=== PATIENT | male | born 1955 | race Caucasian/White ===

== ENCOUNTER 2016-12-20 14:11 | Inpatient (IN) | payer OTHER ==
[2016-12-20] MEDS ORDERED: OXYCODONE-ACETAMINOPHEN 5-325 MG TABLET PO ONE (15:10)
--- NOTE | 2016-12-20 15:10 | ER Document Report ---
ED Medical Screen (RME) - General Chief Complaint: Foot Pain Stated Complaint: RIGHT FOOT PAIN Time Seen by Provider: 12/20/16 15:08 Notes: 7-year-old male patient here with infected right second toe. He thinks he scraped it and/or got a blister in it several days ago. Now the foot is red and swollen as is the toe. He does not have diabetes. I have greeted and performed a rapid initial assessment of this patient. A comprehensive ED assessment and evaluation of the patient, analysis of test results and completion of the medical decision making process will be conducted by additional ED providers. TRAVEL OUTSIDE OF THE [place] IN LAST 30 DAYS: No - Related Data Allergies/Adverse Reactions: No Known Allergies Allergy (Verified 12/20/16 14:20) Past Medical History Renal/ Medical History: Denies: Hx Peritoneal Dialysis Physical Exam - Vital signs Vitals: Temp Pulse Resp BP Pulse Ox 99.8 F 106 H 16 165/94 H 97 12/20/16 14:21 12/20/16 14:21 12/20/16 14:21 12/20/16 14:21 12/20/16 14:21 Course - Vital Signs Vital signs: Temp Pulse Resp BP Pulse Ox 99.8 F 106 H 16 165/94 H 97 12/20/16 14:21 12/20/16 14:21 12/20/16 14:21 12/20/16 14:21 12/20/16 14:21
--- NOTE | 2016-12-20 15:43 | RADIOLOGY REPORT (SQ) ---
EXAM DESCRIPTION: TOE RIGHT COMPLETED DATE/TIME: 12/20/2016 3:32 pm REASON FOR STUDY: 2nd toe infection, FB/splinter? COMPARISON: None. NUMBER OF VIEWS: Three views. TECHNIQUE: AP, lateral, and oblique images acquired of the right toes. LIMITATIONS: None. FINDINGS: MINERALIZATION: Normal. BONES: No acute fracture or dislocation. No worrisome bone lesions. JOINTS: No effusions. SOFT TISSUES: There is a plantar soft tissue foreign body in the soft tissues between the bases of th e 2nd and 3rd proximal phalanges. Overlying soft tissue swelling. No soft tissue gas. OTHER: No other significant finding. IMPRESSION: Linear metallic radiopaque foreign body, in the plantar soft tissues between the 2nd and 3rd proximal phalanges No fracture. No soft tissue gas. No aggressive bony erosions. COMMENT: SITE OF TRAUMA/COMPLAINT MARKED/STAMP COMPLETED: YES. TECHNICAL DOCUMENTATION: JOB ID: [id number] [employer]- All Rights Reserved
[2016-12-20 15:52] LABS: ABSOLUTE BASOPHILS # (AUTO) 0.1 10^3/uL (0.0-0.2); ABSOLUTE EOSINOPHILS # (AUTO) 0.1 10^3/uL (0.0-0.6); ABSOLUTE LYMPHOCYTES (AUTO) 1.5 10^3/uL (0.5-4.7); ABSOLUTE MONOCYTES (AUTO) 0.9 10^3/uL (0.1-1.4); ABSOLUTE NEUT (AUTO) 8.8 10^3/uL (1.7-8.2); BASOPHILS % (AUTO) 0.5 % (0-2); EOSINOPHILS % (AUTO) 0.5 % (0-6); HEMATOCRIT 39.9 % (37.9-51.0); HEMOGLOBIN 13.3 g/dL (13.5-17.0); LYMPHOCYTES % (AUTO) 13.3 % (13-45); MEAN CORPUSCULAR HEMOGLOBIN 26.5 pg (27.0-33.4); MEAN CORPUSCULAR HGB CONC 33.3 g/dL (32.0-36.0); MEAN CORPUSCULAR VOLUME 80 fl (80-97); MONOCYTES % (AUTO) 7.7 % (3-13); RED BLOOD COUNT 5.02 10^6/uL (4.35-5.55); WHITE BLOOD COUNT 11.3 10^3/uL (4.0-10.5)
--- NOTE | 2016-12-20 16:03 | ER Document Report ---
ED Extremity Problem, Lower - General Chief Complaint: Foot Pain Stated Complaint: RIGHT FOOT PAIN Time Seen by Provider: 12/20/16 15:08 Mode of Arrival: Ambulatory Information source: Patient TRAVEL OUTSIDE OF THE [place] IN LAST 30 DAYS: No - HPI Notes: 61-year-old male presents emergency department with redness and swelling to the second digit of his right foot. He reports this began 3 days ago. [facility], and he was referred to the emergency department for further evaluation and care. He denies any known injury to the toe. He does report having a plantar wart present on the ball of his foot for the past 3 months. He suspects that it may be a foreign body and not a plantar wart. This is just proximal to the second digit. The patient also reports that his second digit is longer than the rest of his toes and sometimes gets caught on the ground when he is walking. There is a skin break on the distal portion of the second digit. The patient cannot recall when this happened. He has been cleaning it with hydrogen peroxide. The patient reports he has a history of peripheral neuropathy, likely due to chronic back problems. He denies diabetes. - Related Data Allergies/Adverse Reactions: No Known Allergies Allergy (Verified 12/20/16 14:20) Home Medications: Current Home Medications No Home Medications 12/20/16 [History] Past Medical History - Social History Smoking Status: Former Smoker Family History: Reviewed & Not Pertinent Patient has suicidal ideation: No Patient has homicidal ideation: No - Past Medical History Cardiac Medical History: Reports: Hx Hypertension Renal/ Medical History: Denies: Hx Peritoneal Dialysis Review of Systems - Review of Systems Notes: REVIEW OF SYSTEMS: CONSTITUTIONAL : Denies fever, chills, or sweats. Denies recent illness. EENT: Denies eye, ear, throat, or mouth pain or symptoms. Denies nasal or sinus congestion or discharge. CARDIOVASCULAR: Denies chest pain. Denies palpitations or racing or irregular heart beat. RESPIRATORY: Denies cough, cold, or chest congestion. Denies shortness of breath, difficulty breathing, or wheezing. GASTROINTESTINAL: Denies abdominal pain or distention. Denies nausea, vomiting , or diarrhea. GENITOURINARY: Denies difficulty urinating, painful urination, burning, frequency, blood in urine, or discharge. Muscular skeletal: Swelling of the second digit on the right foot. See HPI Skin: Erythema in the second digit of the right foot and the distal portion of the foot. See HPI LYMPHATIC: Denies swollen, enlarged glands. NEUROLOGICAL: Denies confusion or altered mental status. Denies passing out or loss of consciousness. Denies dizziness or lightheadedness. Denies headache. ALL OTHER SYSTEMS REVIEWED AND NEGATIVE. Physical Exam - Vital signs Vitals: Temp Pulse Resp BP Pulse Ox 99.8 F 106 H 16 165/94 H 97 12/20/16 14:21 12/20/16 14:21 12/20/16 14:21 12/20/16 14:21 12/20/16 14:21 - Notes Notes: PHYSICAL EXAMINATION: GENERAL: Well-appearing, well-nourished and in no acute distress. HEAD: Atraumatic, normocephalic. ENT: Nares patent, oropharynx clear without exudates. Moist mucous membranes. NECK: Normal range of motion, supple without lymphadenopathy LUNGS: Breath sounds clear to auscultation bilaterally and equal. No wheezes rales or rhonchi. HEART: Regular rate and rhythm without murmurs ABDOMEN: Soft, nontender, nondistended abdomen. No guarding, no rebound. No masses appreciated. MUSCULOSKELETAL: No noted deformity. The patient's musculoskeletal exam is within normal appearance except for the right foot. The toe is swollen and there is erythema extending proximal to approximately one third of the foot. On the plantar side, there is a thickened area with a dark core that could be a plantar wart or could be inflammation from foreign body months ago. SKIN: Notably erythemic second digit of the right foot. This toe is also noticeably swollen. The erythema extends approximately through portions of the forefoot. This area also appears to be slightly swollen. There is a small break in the skin that appears to be crusted over on the distal portion of the second toe. This area has been now cleaned off, debrided, by me. The area around the nail does not appear significantly worse than other areas. This does not appear to be an extension of paronychia. There is an old subungual hematoma present. NEUROLOGICAL: Cranial nerves grossly intact. Normal speech, normal gait. Normal sensory, motor exams PSYCH: Normal mood, normal affect. Patient is pleasant and interactive. Course - Re-evaluation Re-evalutation: 12/20/16 16:10 Worrisome evidence of infection in the second digit of the right foot. The erythema extends back to approximately one third of the forefoot. This has now been marked with a pen by me. It is unclear what the source of this infection is. It may be the skin break on the distal portion of the right second digit. It also could be triggered from a foreign body that is embedded on the plantar side, however given that this area does not have any erythema and it appears to be that the second digit is the focus of this infection, I believe this is less likely. Blood has been drawn for evaluation and an x-ray has been performed. Results are pending. I have discussed treatment with IV antibiotics now and the choice of admission to the hospital for discharge home. The patient prefers to go home. We will discuss this again after his tests have resulted. Of note, I did debride the wound on the distal portion of the second toe. There was no gross purulence noted. 12/20/16 16:38 X-ray reveals a metallic foreign body in the plantar surface of the foot. This area does not appear to be erythemic on clinical exam, but I cannot rule out this as the nidus for infection that is involving the second digit of the toe. Clindamycin IV has been ordered. Blood cultures been obtained. I have discussed the case with Dr. Rivera, general surgery, who will evaluate the patient in the emergency department as well. 12/20/16 17:29 I have seen the patient with Dr. Rivera. He is requesting a CT scan to evaluate for fluid collection. I have called and spoke with radiology to help protocol the CT. Radiology requests we do it with IV contrast. Dr. Rivera reports that he will admit the patient to the hospital. - Vital Signs Vital signs: Temp Pulse Resp BP Pulse Ox 99.8 F 106 H 18 165/94 H 97 12/20/16 14:21 12/20/16 14:21 12/20/16 15:59 12/20/16 14:21 12/20/16 14:21 - Laboratory Result Diagrams: 12/20/16 15:30 12/20/16 15:30 Laboratory results interpreted by me: 12/20/16 12/20/16 15:30 15:30 WBC 11.3 H Hgb 13.3 L MCH 26.5 L Absolute Neutrophils 8.8 H Sodium 136.9 L Glucose 156 H Discharge - Discharge Clinical Impression: Abscess or cellulitis of foot Condition: Fair Disposition: ADMITTED OBSERVATION Admitting Provider: Surgicalist Unit Admitted: Surgical Floor
[2016-12-20 16:05] LABS: ALANINE AMINOTRANSFERASE 44 U/L (21-72); ALBUMIN 4.5 g/dL (3.5-5.0); ALKALINE PHOSPHATASE 75 U/L (38-126); ANION GAP 12 (5-19); ASPARTATE AMINO TRANSFERASE 30 U/L (17-59); BILIRUBIN,DIRECT 0.4 mg/dL (0.0-0.4); BILIRUBIN,TOTAL 0.9 mg/dL (0.2-1.3); BLOOD UREA NITROGEN 13 mg/dL (7-20); CALCIUM 9.7 mg/dL (8.4-10.2); CARBON DIOXIDE 24 mmol/L (22-30); CHLORIDE 101 mmol/L (98-107); CREATININE RESULT 1.15 mg/dL (0.52-1.25); GLUCOSE 156 mg/dL (75-110); POTASSIUM 4.5 mmol/L (3.6-5.0); SODIUM 136.9 mmol/L (137-145); TOTAL PROTEIN 7.8 g/dL (6.3-8.2)
[2016-12-20] MEDS ORDERED: CLINDAMYCIN 600 MG/D5W RTU 600 MG/50 ML RTUPB IV ONE (16:15)
[2016-12-20] MEDS ORDERED: NORMAL SALINE 1000 ML 500 ML IV ONE (16:40)
[2016-12-20] MEDS ORDERED: PIPERACILLIN/TAZOBACTAM 3.375 GM VIAL IV ONE (18:03)
--- NOTE | 2016-12-20 18:04 | PDOC H&P ---
History of Present Illness Patient complains of: right forefoot redness and swelling History of Present Illness: JACKIE PATIÑO is a 61 year old patient with a hx of with infected right second toe and right forefoot for about 3 days. He thinks that his second toe curls and he walks on it so to cause a blister and then an opening of the dorsal skin of the middle second toe joint. According to the patient, he scraped it and/or got a blister. Eventually, this has evolved into redness, swelling, and drainage followed by signs of cellulitis affecting the dorsal right forefoot. He states he does not have diabetes. Past Medical History Cardiac Medical History: Reports: Hypertension Past Surgical History Past Surgical History: Reports: Appendectomy, Orthopedic Surgery - left knee, 2nd toe has pin in place Social History Lives with: Spouse/Significant other Smoking Status: Former Smoker - quit 5 years ago Frequency of Alcohol Use: Heavy - patient not specific Hx Recreational Drug Use: No Drugs: None Family History Family History: Reviewed & Not Pertinent Parental Family History Reviewed: No - none Children Family History Reviewed: No - none Sibling(s) Family History Reviewed.: No Medication/Allergy Home Medications: No Home Medications 12/20/16 Allergies/Adverse Reactions: No Known Allergies Allergy (Verified 12/20/16 14:20) Physical Exam Vital Signs: Temp Pulse Resp BP Pulse Ox 99.8 F 106 H 18 165/94 H 97 12/20/16 14:21 12/20/16 14:21 12/20/16 15:59 12/20/16 14:21 12/20/16 14:21 Intake & Output 12/19/16 12/20/16 12/21/16 06:59 06:59 06:59 Weight 127.2 kg Respiratory exam: PRESENT: clear to auscultation nathaniel Cardiovascular exam: PRESENT: RRR Pulses: PRESENT: normal femoral pulses, +2 pedal pulses bilateral Vascular exam: PRESENT: normal capillary refill GI/Abdominal exam: PRESENT: normal bowel sounds, soft Extremities exam: PRESENT: +1 edema - right dorsal forefoot edema with redness, some redness extending to the dorsal right leg Skin exam: PRESENT: other - right forefoot redness and edema; ulcer of the dorsal aspect, middle joint, second toe Results Laboratory Results: 12/20/16 15:30 12/20/16 15:30 12/20/16 12/20/16 15:30 15:30 WBC 11.3 H RBC 5.02 Hgb 13.3 L Hct 39.9 MCV 80 MCH 26.5 L MCHC 33.3 RDW 14.0 Plt Count 209 Seg Neutrophils % 78.0 Lymphocytes % 13.3 Monocytes % 7.7 Eosinophils % 0.5 Basophils % 0.5 Absolute Neutrophils 8.8 H Absolute Lymphocytes 1.5 Absolute Monocytes 0.9 Absolute Eosinophils 0.1 Absolute Basophils 0.1 Sodium 136.9 L Potassium 4.5 Chloride 101 Carbon Dioxide 24 Anion Gap 12 BUN 13 Creatinine 1.15 Est GFR ( Amer) > 60 Est GFR (Non-Af Amer) > 60 Glucose 156 H Calcium 9.7 Total Bilirubin 0.9 AST 30 ALT 44 Alkaline Phosphatase 75 Total Protein 7.8 Albumin 4.5 Impressions: Toe X-Ray 12/20/16 15:08 IMPRESSION: Linear metallic radiopaque foreign body, in the plantar soft tissues between the 2nd and 3rd proximal phalanges No fracture. No soft tissue gas. No aggressive bony erosions. Assessment & Plan - Plan Summary Plan Summary: A/ right second toe and right forefoot cellulitis, most likely secondary to trauma of the second toe presence of foreign body, right forefoot plantar surface: area not involved by cellulitis, therefore incidental findings mild leucocytosis P/ Obtain stat CT scan right foot to r/o fluid collection and gas gangrene requiring surgical debridment Admit IV antibiotics (Clinda/Zosyn) IVF
--- NOTE | 2016-12-20 18:16 | RADIOLOGY REPORT (SQ) ---
EXAM DESCRIPTION: CT RT LOWER EXTREMITY WITH COMPLETED DATE/TIME: 12/20/2016 6:02 pm REASON FOR STUDY: Cellulitis of foot. Evaluate for abscess. COMPARISON: None. TECHNIQUE: CT scan of the right foot was performed with IV contrast. Images reviewed with soft tiss ue and bone windows. Reconstructed coronal and sagittal MPR images reviewed. All images stored on [employer]. Patient was injected with 100 mL of Isovue 370. Creatinine 1.[address] scanners at this facility use dose modulation, iterative reconstruction, and/or weight based d osing when appropriate to reduce radiation dose to as low as reasonably achievable (ALARA). [facility]: Dose Right [facility]: CareDose [facility]: Dose Right [facility]: Teradose 4D [facility]: [employer] RADIATION DOSE: Up-to-date CT equipment and radiation dose reduction techniques were employed. CTDIv ol: 4.1 mGy. DLP: 119 mGy-cm. mGy. LIMITATIONS: None. FINDINGS: Diffuse skin thickening and subcutaneous stranding is seen over the 2nd toe. No soft tiss ue fluid collection worrisome for abscess. There is diffuse cellulitis with skin thickening and subcutaneous stranding over the plantar aspect o f the right foot at the 2nd and 3rd metatarsophalangeal joint region, extending into the lateral foot soft tissues. Mild diffuse subcutaneous edema in the dorsal foot soft tissues. A linear are radiopaque foreign body is present in the soft tissues, plantar right foot at the level of the 2nd metatarsophalangeal joint. This measures about 5 mm x 1 mm in size, best shown on sagitta l reconstruction images 36 and 37. Surrounding fibrosis in the plantar fat is identified. Normal vascular enhancement. No fracture. No lytic or blastic bony changes. Mild bony spurring at the ankle joint, talonavicular joint, calcaneocuboid joint, subtalar joints, with small plantar and dorsal calcaneal spurs IMPRESSION: 2nd toe cellulitis No CT evidence of foot abscess Radiopaque foreign body in the plantar soft tissues at the level of the 2nd metatarsal head TECHNICAL DOCUMENTATION: JOB ID: [id number] Quality ID # [id number]: Final reports with documentation of one or more dose reduction techniques (e.g., Au tomated exposure control, adjustment of the mA and/or kV according to patient size, use of iterative reconstruction technique) 2010 [employer]- All Rights Reserved
[2016-12-20] MEDS ORDERED: NORMAL SALINE 1000 ML 1,000 ML IV PRN (18:40)
[2016-12-20] MEDS ORDERED: ACETAMINOPHEN 325 MG TABLET PO PRN (18:40)
[2016-12-20] MEDS ORDERED: MORPHINE SULFATE 10 MG/ML INJ IV PRN (18:40)
[2016-12-20] MEDS ORDERED: ENOXAPARIN SODIUM INJ 40 MG/0.4 ML DISP.SYRIN SUBCUT ONE (20:00)
[2016-12-20] MEDS ORDERED: PIPERACILLIN SODIUM/TAZOBACTAM 3.375 GM in NORMAL SALINE 100 ML IV ONE (20:00)
[2016-12-20] MEDS: FAMOTIDINE INJ/PF 20 MG/2 ML SDV IV SCH (22:38)
[2016-12-20] MEDS: PIPERACILLIN SODIUM/TAZOBACTAM 3.375 GM in NORMAL SALINE 100 ML IV SCH (22:47)
[2016-12-20] MEDS: CLINDAMYCIN 600 MG/D5W RTU 600 MG/50 ML RTUPB IV SCH (23:25)
[2016-12-21] MEDS ORDERED: PIPERACILLIN/TAZOBACTAM 3.375 GM VIAL IV SCH
[2016-12-21] MEDS: CLINDAMYCIN 600 MG/D5W RTU 600 MG/50 ML RTUPB IV SCH ×3 (05:07→22:16)
[2016-12-21 05:12] LABS: ABSOLUTE BASOPHILS # (AUTO) 0.1 10^3/uL (0.0-0.2); ABSOLUTE EOSINOPHILS # (AUTO) 0.3 10^3/uL (0.0-0.6); ABSOLUTE LYMPHOCYTES (AUTO) 1.4 10^3/uL (0.5-4.7); ABSOLUTE MONOCYTES (AUTO) 0.6 10^3/uL (0.1-1.4); ABSOLUTE NEUT (AUTO) 3.6 10^3/uL (1.7-8.2); EOSINOPHILS % (AUTO) 4.3 % (0-6); HEMOGLOBIN 11.8 g/dL (13.5-17.0); HGB HCT DIFFERENCE 0.4; LYMPHOCYTES % (AUTO) 23.9 % (13-45); MEAN CORPUSCULAR HEMOGLOBIN 26.8 pg (27.0-33.4); MEAN CORPUSCULAR HGB CONC 33.7 g/dL (32.0-36.0); MEAN CORPUSCULAR VOLUME 79 fl (80-97); RED CELL DISTRIBUTION WIDTH 13.9 % (11.5-14.0); SEGMENTED NEUTROPHILS % (AUTO) 60.8 % (42-78); WHITE BLOOD COUNT 5.9 10^3/uL (4.0-10.5)
[2016-12-21 05:24] LABS: ANION GAP 6 (5-19); BLOOD UREA NITROGEN 14 mg/dL (7-20); CALCIUM 8.6 mg/dL (8.4-10.2); CARBON DIOXIDE 27 mmol/L (22-30); CHLORIDE 104 mmol/L (98-107); GLUCOSE 157 mg/dL (75-110); POTASSIUM 4.3 mmol/L (3.6-5.0)
[2016-12-21] MEDS: PIPERACILLIN SODIUM/TAZOBACTAM 3.375 GM in NORMAL SALINE 100 ML IV SCH ×4 (05:59→23:15)
[2016-12-21] MEDS: FAMOTIDINE INJ/PF 20 MG/2 ML SDV IV SCH ×2 (11:16→22:16)
[2016-12-21] MEDS: ENOXAPARIN SODIUM INJ 40 MG/0.4 ML DISP.SYRIN SUBCUT SCH (11:18)
[2016-12-21] MEDS: DOCUSATE SODIUM 100 MG CAPSULE PO SCH (11:19)
[2016-12-21] MEDS: BACITRACIN ZINC OINTMENT 15 GM TP SCH ×3 (11:22→18:39)
[2016-12-21] MEDS ORDERED: NAPROXEN 250 MG TABLET PO PRN (13:42)
[2016-12-21] MEDS ORDERED: ACETAMINOPHEN 325 MG TABLET PO PRN (13:46)
--- NOTE | 2016-12-21 13:53 | PDOC PROGRESS REPORT ---
Subjective Progress Note for:: 12/21/16 Subjective:: patient feels comfortable, denies right foot pain Physical Exam Vital Signs: Temp Pulse Resp BP Pulse Ox 97.7 F 75 12 139/98 H 100 12/21/16 10:57 12/21/16 10:57 12/21/16 10:57 12/21/16 10:57 12/21/16 10:57 Intake & Output 12/20/16 12/21/16 12/22/16 06:59 06:59 06:59 Intake Total 480 Balance 480 Weight 126.55 kg Extremities exam: PRESENT: other - Right foot: stille edema present, decraed erythema, minimal tenderness Results Laboratory Results: 12/21/16 04:57 12/21/16 04:57 12/21/16 12/21/16 04:57 04:57 WBC 5.9 RBC 4.40 Hgb 11.8 L Hct 35.0 L MCV 79 L MCH 26.8 L MCHC 33.7 RDW 13.9 Plt Count 167 Seg Neutrophils % 60.8 Lymphocytes % 23.9 Monocytes % 10.0 Eosinophils % 4.3 Basophils % 1.0 Absolute Neutrophils 3.6 Absolute Lymphocytes 1.4 Absolute Monocytes 0.6 Absolute Eosinophils 0.3 Absolute Basophils 0.1 Sodium 137.0 Potassium 4.3 Chloride 104 Carbon Dioxide 27 Anion Gap 6 BUN 14 Creatinine 1.10 Est GFR ( Amer) > 60 Est GFR (Non-Af Amer) > 60 Glucose 157 H Calcium 8.6 Impressions: Toe X-Ray 12/20/16 15:08 IMPRESSION: Linear metallic radiopaque foreign body, in the plantar soft tissues between the 2nd and 3rd proximal phalanges No fracture. No soft tissue gas. No aggressive bony erosions. Lower Extremity CT 12/20/16 17:27 IMPRESSION: 2nd toe cellulitis No CT evidence of foot abscess Radiopaque foreign body in the plantar soft tissues at the level of the 2nd metatarsal head Assessment & Plan - Plan Summary Plan Summary: A/ right forefoot cellulitis Physicalk exam improved with less edema and erythema still diffusely swollen RLE foot to thigh P/ Continue bedrest and RLE elevation Continue IV antibiotics (Clinda/Zosyn) Heplock IVF Stop narcotics Start Tylenol/Advil for pain control
--- NOTE | 2016-12-21 15:02 | RADIOLOGY REPORT (SQ) ---
EXAM DESCRIPTION: VENOUS UNILATERAL LOWER COMPLETED DATE/TIME: 12/21/2016 2:55 pm REASON FOR STUDY: right lower extermity venous duplex to r/o DVT COMPARISON: None. TECHNIQUE: Dynamic and static latham scale and color images acquired of the right leg venous system. S elected spectral images acquired with additional compression and augmentation maneuvers. The contrala teral common femoral vein and saphenofemoral junction were also imaged. Images stored on PACS. LIMITATIONS: None. FINDINGS: COMMON FEMORAL: Normal phasicity, compression and augmentation. No visualized echogenic ma terial on latham scale. No defects on color images. FEMORAL: Normal compression and augmentation. No visualized echogenic material on latham scale. No defe cts on color images. POPLITEAL: Normal compression, augmentation. No visualized echogenic material on latham scale. No defec ts on color images. CALF VESSELS: Normal compression, augmentation. No visualized echogenic material on latham scale. No de fects on color images. GSV and SSV: Normal compression, augmentation. No visualized echogenic material on latham scale. No def ects on color images. ANY DEEP VENOUS INSUFFICIENCY: Not evaluated. ANY EVIDENCE OF POPLITEAL CYST: No. OTHER: No other significant finding. CONTRALATERAL COMMON FEMORAL VEIN AND SAPHENOFEMORAL JUNCTION: Normal phasicity, compression and augmentation. No visualized echogenic material on latham scale. No de fects on color images. IMPRESSION: NO EVIDENCE DVT OR SVT IN THE RIGHT LEG. TECHNICAL DOCUMENTATION: JOB ID: [id number] [employer]- All Rights Reserved
[2016-12-22 04:34] LABS: ABSOLUTE BASOPHILS # (AUTO) 0.1 10^3/uL (0.0-0.2); ABSOLUTE EOSINOPHILS # (AUTO) 0.2 10^3/uL (0.0-0.6); ABSOLUTE LYMPHOCYTES (AUTO) 1.2 10^3/uL (0.5-4.7); ABSOLUTE MONOCYTES (AUTO) 0.4 10^3/uL (0.1-1.4); EOSINOPHILS % (AUTO) 4.9 % (0-6); HEMOGLOBIN 11.8 g/dL (13.5-17.0); HGB HCT DIFFERENCE 0.4; LYMPHOCYTES % (AUTO) 24.4 % (13-45); MEAN CORPUSCULAR HEMOGLOBIN 26.8 pg (27.0-33.4); MEAN CORPUSCULAR HGB CONC 33.7 g/dL (32.0-36.0); MEAN CORPUSCULAR VOLUME 80 fl (80-97); MONOCYTES % (AUTO) 8.6 % (3-13); RED CELL DISTRIBUTION WIDTH 13.7 % (11.5-14.0); SEGMENTED NEUTROPHILS % (AUTO) 61.1 % (42-78); WHITE BLOOD COUNT 4.9 10^3/uL (4.0-10.5)
[2016-12-22 04:49] LABS: ANION GAP 7 (5-19); BLOOD UREA NITROGEN 13 mg/dL (7-20); CALCIUM 9.2 mg/dL (8.4-10.2); CARBON DIOXIDE 25 mmol/L (22-30); CHLORIDE 105 mmol/L (98-107); CREATININE RESULT 1.07 mg/dL (0.52-1.25); GLUCOSE 149 mg/dL (75-110); POTASSIUM 4.5 mmol/L (3.6-5.0); SODIUM 137.1 mmol/L (137-145)
[2016-12-22] MEDS: PIPERACILLIN SODIUM/TAZOBACTAM 3.375 GM in NORMAL SALINE 100 ML IV SCH ×4 (05:51→23:26)
[2016-12-22] MEDS: CLINDAMYCIN 600 MG/D5W RTU 600 MG/50 ML RTUPB IV SCH (05:52)
[2016-12-22] MEDS: BACITRACIN ZINC OINTMENT 15 GM TP SCH (11:08)
[2016-12-22] MEDS: ENOXAPARIN SODIUM INJ 40 MG/0.4 ML DISP.SYRIN SUBCUT SCH (11:08)
[2016-12-22] MEDS: DOCUSATE SODIUM 100 MG CAPSULE PO SCH (11:09)
--- NOTE | 2016-12-22 16:28 | PDOC PROGRESS REPORT ---
Subjective Progress Note for:: 12/22/16 Subjective:: patient is comfortable, denies right foot pain Physical Exam Vital Signs: Temp Pulse Resp BP Pulse Ox 97.7 F 73 12 144/80 H 99 12/22/16 11:13 12/22/16 11:13 12/22/16 11:13 12/22/16 11:13 12/22/16 11:13 Intake & Output 12/21/16 12/22/16 12/23/16 06:59 06:59 06:59 Intake Total 480 720 200 Output Total 650 Balance 480 70 200 Weight 126.55 kg 133 kg Extremities exam: PRESENT: +1 edema, other - right forefoot: minimal edema, no erythema, good ROM, mild edema second toe with small skin ulceration of the middle phalangeal joint Results Laboratory Results: 12/22/16 04:16 12/22/16 04:16 12/22/16 12/22/16 04:16 04:16 WBC 4.9 RBC 4.40 Hgb 11.8 L Hct 35.0 L MCV 80 MCH 26.8 L MCHC 33.7 RDW 13.7 Plt Count 182 Seg Neutrophils % 61.1 Lymphocytes % 24.4 Monocytes % 8.6 Eosinophils % 4.9 Basophils % 1.0 Absolute Neutrophils 3.0 Absolute Lymphocytes 1.2 Absolute Monocytes 0.4 Absolute Eosinophils 0.2 Absolute Basophils 0.1 Sodium 137.1 Potassium 4.5 Chloride 105 Carbon Dioxide 25 Anion Gap 7 BUN 13 Creatinine 1.07 Est GFR ( Amer) > 60 Est GFR (Non-Af Amer) > 60 Glucose 149 H Calcium 9.2 Impressions: Toe X-Ray 12/20/16 15:08 IMPRESSION: Linear metallic radiopaque foreign body, in the plantar soft tissues between the 2nd and 3rd proximal phalanges No fracture. No soft tissue gas. No aggressive bony erosions. Lower Extremity CT 12/20/16 17:27 IMPRESSION: 2nd toe cellulitis No CT evidence of foot abscess Radiopaque foreign body in the plantar soft tissues at the level of the 2nd metatarsal head Venous Doppler Study 12/21/16 00:00 IMPRESSION: NO EVIDENCE DVT OR SVT IN THE RIGHT LEG. Assessment & Plan - Plan Summary Plan Summary: A/ right forefoot cellulitis Physical exam improved with almost completely resolved edema and no erythema Decreased swelling of RLE RLE venous duplex negative for DVT done yesterday P/ Continue bedrest and RLE elevation Discontinue Clindamycin Continue IV Zosyn) Discharge tomorrow after an additional 24 hrs of IV antibiotics
[2016-12-22] MEDS ORDERED: BACITRACIN ZINC OINTMENT 15 GM TP ONE (16:45)
[2016-12-22] MEDS: FAMOTIDINE 20 MG TABLET PO SCH (21:09)
[2016-12-23] MEDS: PIPERACILLIN SODIUM/TAZOBACTAM 3.375 GM in NORMAL SALINE 100 ML IV SCH ×3 (05:38→19:23)
[2016-12-23 06:45] LABS: ABSOLUTE BASOPHILS # (AUTO) 0.1 10^3/uL (0.0-0.2); ABSOLUTE EOSINOPHILS # (AUTO) 0.2 10^3/uL (0.0-0.6); ABSOLUTE LYMPHOCYTES (AUTO) 1.4 10^3/uL (0.5-4.7); ABSOLUTE MONOCYTES (AUTO) 0.4 10^3/uL (0.1-1.4); ABSOLUTE NEUT (AUTO) 3.8 10^3/uL (1.7-8.2); BASOPHILS % (AUTO) 0.9 % (0-2); EOSINOPHILS % (AUTO) 3.6 % (0-6); HEMATOCRIT 37.1 % (37.9-51.0); HEMOGLOBIN 12.5 g/dL (13.5-17.0); HGB HCT DIFFERENCE 0.4; MEAN CORPUSCULAR HEMOGLOBIN 26.8 pg (27.0-33.4); MEAN CORPUSCULAR HGB CONC 33.7 g/dL (32.0-36.0); MEAN CORPUSCULAR VOLUME 80 fl (80-97); MONOCYTES % (AUTO) 7.5 % (3-13); RED BLOOD COUNT 4.66 10^6/uL (4.35-5.55); RED CELL DISTRIBUTION WIDTH 13.5 % (11.5-14.0); WHITE BLOOD COUNT 5.9 10^3/uL (4.0-10.5)
[2016-12-23 07:04] LABS: ANION GAP 6 (5-19); BLOOD UREA NITROGEN 16 mg/dL (7-20); CALCIUM 9.4 mg/dL (8.4-10.2); CARBON DIOXIDE 28 mmol/L (22-30); CHLORIDE 103 mmol/L (98-107); CREATININE RESULT 1.19 mg/dL (0.52-1.25); GLUCOSE 151 mg/dL (75-110); POTASSIUM 4.4 mmol/L (3.6-5.0); SODIUM 136.9 mmol/L (137-145)
[2016-12-23] MEDS: DOCUSATE SODIUM 100 MG CAPSULE PO SCH (11:12)
[2016-12-23] MEDS: BACITRACIN ZINC OINTMENT 15 GM TP SCH ×2 (11:12→19:23)
[2016-12-23] MEDS: FAMOTIDINE 20 MG TABLET PO SCH (11:12)
[2016-12-23] MEDS: ENOXAPARIN SODIUM INJ 40 MG/0.4 ML DISP.SYRIN SUBCUT SCH (11:13)
[2016-12-23 21:07] VITALS: BP 138/90
--- NOTE | 2016-12-23 21:37 | DISCHARGE SUMMARY E ---
Discharge Summary NAME: JACKIE PATIÑO : 1955 AGE: 61Y ADMITTED: 12/20/2016 DISCHARGED: REASON FOR ADMISSION: Right foot infection. SUMMARY OF HOSPITALIZATION: The patient is a 61-year-old white male with a history of alcohol consumption who presents to the emergency department complaining of a right second toe infection for about 3 days. He was admitted to the surgical service for intravenous antibiotics. The patient was evaluated by imaging including x-rays and CT scan, which showed a fine wire-like foreign body in his right foot over the metatarsal region second digit; there was no evidence of air or fluid on the CT scan. The patient's clinical condition improved with intravenous antibiotics. By the third hospital day, he was ready for discharge home. Of note, he did have a venous duplex study of his right lower extremity, which showed no evidence of DVT. FINAL DIAGNOSIS: Right foot cellulitis with advanced infection right second toe, status post intravenous antibiotics, left elevation and local wound care. DISPOSITION: The patient will be discharged home in care of his family. Followup with [facility] approximately 1 week, take Augmentin 500 mg p.o. t.i.d. and keep the leg elevated. He will apply dressings to the right second toe, which has a very small ulcer over the distal phalangeal joint. DICTATING PHYSICIAN: MICHI NELSON M.D. [id number] SUKHY#: [id number] ID: [id number] JOB#: [id number] ACCT: [id number] cc:Kendrick RUIZ M.D. >
== END 2016-12-23 21:30 | disposition home or self-care (01) | DRG 603 ==
LOC: ER 14:11 → UNDOADMOB 18:29 → EH 18:29 → OBSVTOIN 18:37 → EH 18:37 → 4N 20:55
PROVIDERS: ATTEND Surgery
PROC: 0HDMXZZ Extraction of Right Foot Skin, External Approach (ICD-10-PCS; principal; 2016-12-20)
DX: L03.115 Cellulitis of right lower limb (principal); L03.031 Cellulitis of right toe; S91.341A Puncture wound with foreign body, right foot, initial encounter; X58.XXXA Exposure to other specified factors, initial encounter; Y93.9 Activity, unspecified; Y92.9 Unspecified place or not applicable; Y99.9 Unspecified external cause status; I10 Essential (primary) hypertension; Z87.891 Personal history of nicotine dependence
CPT/HCPCS: 36415; 80048; 80053; 85025; 87040; 93971; J1650; J2543; J3490; J7030; S0028

== ENCOUNTER 2019-04-16 07:01 | Day surgery (SDC) | payer OTHER ==
[~2019-04-16 07:01] MED LIST: BUPIVACAINE HCL 0.75% INJ/PF (7.5 MG/1 ML) 10 ML SDV OS PRN; FENTANYL CITRATE INJ/PF 100 MCG/2 ML AMPUL ONE; KETOROLAC TROMETHAMINE 0.45% 4 DROP/0.4 ML DROPERETTE OS PRN; LIDOCAINE 4% INJ/PF (40 MG/ML) 5 ML AMPUL OS PRN; MIDAZOLAM 2 MG/2 ML INJ ONE; ONDANSETRON HCL INJ/PF 4 MG/2 ML SDV ONE
[2019-04-16] MEDS: TROPICAMIDE 1% OPH SOLN 15 ML OS PRN ×3 (08:21→08:39)
[2019-04-16] MEDS: TETRACAINE HCL 0.5% OPH SOLN 4 ML OS PRN ×3 (08:21→08:47)
[2019-04-16] MEDS: BESIFLOXACIN HCL 0.6% OPH SUSP 5 ML BOTTLE OS PRN ×4 (08:22→09:13)
[2019-04-16] MEDS: CYCLOPENTOLATE 0.2%/PHENYLEPHRINE 1% OPH SOLN 2 ML OS PRN ×3 (08:22→08:39)
[2019-04-16] MEDS: EPINEPHRINE INJ/PF 1 MG/1 ML AMPULE ONE ×2 (09:00)
[2019-04-16] MEDS: CHONDR SU A NA/HYALUR INTRAOC KIT (SURGICARE) ONE ×2 (09:00)
[2019-04-16] MEDS: LIDOCAINE 1% INJ-PF (10 MG/ML) 30 ML SDV ONE ×2 (09:00)
[2019-04-16] MEDS: DORZOLAMIDE HCL 2%/TIMOLOL MALEAT 0.5% OPH SOLN 10 ML OS PRN ×2 (09:13)
--- NOTE | 2019-04-16 11:29 | Operative Report ---
Operative Report-[facility] Operative Report: DATE OF SURGERY: 04/16/2019 PREOPERATIVE DIAGNOSIS: CATARACT, LEFT EYE. POSTOPERATIVE DIAGNOSIS: CATARACT, LEFT EYE. PROCEDURE PERFORMED: PHACOEMULSIFICATION WITH POSTERIOR CHAMBER INTRAOCULAR LENS, LEFT EYE. Intraocular Lens Model : MX60E 18.5 Total Phaco Time: 10.75 CDE SURGEON: SUNSHINE SALDIVAR MD ANESTHESIA: TOPICAL WITH MAC. INDICATIONS FOR SURGERY: Difficultly driving at night and reading music and TV PROCEDURE: The patient was brought to the Operating Room and placed on the operative table. Following tetracaine drops, topical anesthesia was administered. This consisted of instrument wipe pledgets soaked in a solution of 4% Xylocaine mixed with 0.75% Marcaine in a 1:2 ratio. A 2 x 1 cm pledget was placed in the superior fornix. A 1 x 1 cm pledget was placed in the inferior fornix. The eye was patched shut for 5 minutes. The patch was removed. The eye was sterilely prepped and draped in the usual manner. Lid speculum was placed in the eye. The pledgets were removed. 4-0 black silk sutures were placed around the superior and the inferior rectus muscles to be used as traction. A conjunctival peritomy was made at the 10 o'clock position. Hemostasis was obtained with bipolar cautery. A posterior limbal groove was created using a crescent knife and dissected anteriorly towards the cornea. A sharp point blade was used to create a paracentesis site at the 2 o'clock position. 0.2 cc non preserved Lidocaine was injected into the anterior chamber. A 2.4 mm keratome was used to enter the anterior chamber through the groove. Viscoelastic was injected into the anterior chamber. An anterior capsulotomy was performed using Utrata forceps in a capsulorrhexis fashion. Hydrodissection and hydrodelineation were performed. Phacoemulsification was performed in [id number] technique. Following this, the I/A unit was used to remove residual cortex. Viscoelastic was injected into the capsular bag. The Intraocular lens was placed in the capsular bag. The I/A unit was used to remove residual viscoelastic. The wound was seen to be watertight under high and low pressure, and no sutures were placed. The intraocular lens was well centered. The pressure was adjusted in the eye to normal pressure. The 4-0 black silk sutures and lid speculum were removed. The eye was shielded after Besivance and Cosopt drops were placed. The patient tolerated the procedure well and was sent to the Recovery Room in good condition.
== END 2019-04-16 10:00 | disposition home or self-care (01) ==
LOC: SC 07:01
PROVIDERS: ATTEND Ophthalmology
DX: H25.813 Combined forms of age-related cataract, bilateral (principal); I10 Essential (primary) hypertension; E11.9 Type 2 diabetes mellitus without complications; Z87.891 Personal history of nicotine dependence; Z79.899 Other long term (current) drug therapy; Z79.84 Long term (current) use of oral hypoglycemic drugs; H04.123 Dry eye syndrome of bilateral lacrimal glands
CPT/HCPCS: 66984; 82962; V2632; J2250; J3490 ×5; J0171; J3010; J2405; 142

== ENCOUNTER 2019-05-18 08:39 | Day surgery (SDC) | payer OTHER ==
[~2019-05-18 08:39] MED LIST changes: +BUPIVACAINE HCL 0.75% INJ/PF (7.5 MG/1 ML) 10 ML SDV OD PRN; -BUPIVACAINE HCL 0.75% INJ/PF (7.5 MG/1 ML) 10 ML SDV OS PRN; -FENTANYL CITRATE INJ/PF 100 MCG/2 ML AMPUL ONE; +KETOROLAC TROMETHAMINE 0.45% 4 DROP/0.4 ML DROPERETTE OD PRN; -KETOROLAC TROMETHAMINE 0.45% 4 DROP/0.4 ML DROPERETTE OS PRN; +LIDOCAINE 4% INJ/PF (40 MG/ML) 5 ML AMPUL OD PRN; -LIDOCAINE 4% INJ/PF (40 MG/ML) 5 ML AMPUL OS PRN; -MIDAZOLAM 2 MG/2 ML INJ ONE; -ONDANSETRON HCL INJ/PF 4 MG/2 ML SDV ONE
[2019-05-18] MEDS ORDERED: MIDAZOLAM 2 MG/2 ML INJ ONE (09:01)
[2019-05-18] MEDS: TROPICAMIDE 1% OPH SOLN 15 ML OD PRN ×3 (09:44→10:01)
[2019-05-18] MEDS: CYCLOPENTOLATE 0.2%/PHENYLEPHRINE 1% OPH SOLN 2 ML OD PRN ×3 (09:44→10:01)
[2019-05-18] MEDS: TETRACAINE HCL 0.5% OPH SOLN 4 ML OD PRN ×3 (09:44→10:17)
[2019-05-18] MEDS: BESIFLOXACIN HCL 0.6% OPH SUSP 5 ML BOTTLE OD PRN ×4 (09:45→10:42)
[2019-05-18] MEDS: LIDOCAINE 1% INJ-PF (10 MG/ML) 30 ML SDV ONE ×2 (10:33)
[2019-05-18] MEDS: EPINEPHRINE INJ/PF 1 MG/1 ML AMPULE ONE ×2 (10:33)
[2019-05-18] MEDS: CHONDR SU A NA/HYALUR INTRAOC KIT (SURGICARE) ONE ×2 (10:33)
[2019-05-18] MEDS: DORZOLAMIDE HCL 2%/TIMOLOL MALEAT 0.5% OPH SOLN 10 ML OD PRN ×2 (10:42)
--- NOTE | 2019-05-18 13:36 | Operative Report ---
Operative Report-[facility] Operative Report: DATE OF SURGERY: 05/18/2019 PREOPERATIVE DIAGNOSIS: CATARACT, RIGHT EYE. POSTOPERATIVE DIAGNOSIS: CATARACT, RIGHT EYE. PROCEDURE PERFORMED: PHACOEMULSIFICATION WITH POSTERIOR CHAMBER INTRAOCULAR LENS, RIGHT EYE. Intraocular Lens Model : MX60E 19.0 Total Phaco Time: 6.90 CDE SURGEON: SUNSHINE SALDIVAR MD ANESTHESIA: TOPICAL WITH MAC. INDICATIONS FOR SURGERY: Difficulty with depth perception. PROCEDURE: The patient was brought to the Operating Room and placed on the operative table. Following tetracaine drops, topical anesthesia was administered. This consisted of instrument wipe pledgets soaked in a solution of 4% Xylocaine mixed with 0.75% Marcaine in a 1:2 ratio. A 2 x 1 cm pledget was placed in the superior fornix. A 1 x 1 cm pledget was placed in the inferior fornix. The eye was patched shut for 5 minutes. The patch was removed. The eye was sterilely prepped and draped in the usual manner. Lid speculum was placed in the eye. The pledgets were removed. 4-0 black silk sutures were placed around the superior and the inferior rectus muscles to be used as traction. A conjunctival peritomy was made at the 10 o'clock position. Hemostasis was obtained with bipolar cautery. A posterior limbal groove was created using a crescent knife and dissected anteriorly towards the cornea. A sharp point blade was used to create a paracentesis site at the 2 o'clock position. 0.2 cc non preserved Lidocaine was injected into the anterior chamber. A 2.4 mm keratome was used to enter the anterior chamber through the groove. Viscoelastic was injected into the anterior chamber. An anterior capsulotomy was performed using Utrata forceps in a capsulorrhexis fashion. Hydrodissection and hydrodelineation were performed. Phacoemulsification was performed in [id number] technique. Following this, the I/A unit was used to remove residual cortex. Viscoelastic was injected into the capsular bag. The Intraocular lens was placed in the capsular bag. The I/A unit was used to remove residual viscoelastic. The wound was seen to be watertight under high and low pressure, and no sutures were placed. The intraocular lens was well centered. The pressure was adjusted in the eye to normal pressure. The 4-0 black silk sutures and lid speculum were removed. The eye was shielded after Besivance and Cosopt drops were placed. The patient tolerated the procedure well and was sent to the Recovery Room in good condition.
== END 2019-05-18 11:18 | disposition home or self-care (01) ==
LOC: SC 08:39
PROVIDERS: ATTEND Ophthalmology
DX: H25.811 Combined forms of age-related cataract, right eye (principal); Z96.1 Presence of intraocular lens; I10 Essential (primary) hypertension; E11.9 Type 2 diabetes mellitus without complications; Z79.899 Other long term (current) drug therapy
CPT/HCPCS: 66984; 82962; 00142; V2632; J2250; J3490 ×5; J0171; 142